=== PATIENT | male | born 1985 | race Caucasian/White ===

== ENCOUNTER → 2024-05-24 | Outpatient (CLI) | payer OTHER | LOC: LAB 09:19 → LAB SHORT 09:19 | DX: D23.71 Other benign neoplasm of skin of right lower limb, including hip (principal); L98.9 Disorder of the skin and subcutaneous tissue, unspecified | CPT/HCPCS: 88305 ==

== ENCOUNTER 2024-08-10 07:44 | Day surgery (SDC) | payer OTHER ==
[2024-08-10] VITALS (8 sets, daily range): BP systolic 122–147; BP diastolic 82–95
[~2024-08-10] VITALS: Ht 190.5 cm; Wt 142.6 kg
[~2024-08-10 07:44] MED LIST: FAMO20 PO; GLUCOPHAGE1000 M1 PO; LORA10ER PO; LOSARTAN POTAS100 M1 PO; METO50ER PO; ROSUVASTATIN CA10 MG PO; SEMAGLUTID0.25 MG/0. SC; SERT50 PO; SYNJARDY 12.5-1 EAC3 PO; THERA-D2000 UNIT PO
[2024-08-10] MEDS ORDERED: CeFAZolin Sodium 3,000 MG in NS 100 ML IV SCH (07:50)
[2024-08-10] MEDS ORDERED: Tranexamic Acid 100 ML IV SCH (07:53)
--- NOTE | 2024-08-10 08:20 | NUR ---
AMBULATORY INTO [facility]. PT REPORTS 4/10 LEFT SHOULDER PAIN. HISTORY AND ALLERGIES REVIEWED. LUNGS CLEAR.SATS>90% ON RA. PT DENIES SOB. DBP 110'S. PT HAS NOT TAKEN METOPROLOL OR COZAAR SINCE WEDNESDAY. NPO STATUS CONFIRMED. BELONGINGS IN BAG BELOW [place]. PT MOTHER GENARO IS RIDE HOME TODAY.
[2024-08-10] MEDS ORDERED: Midazolam HCl 1MG / ML 2ML Vial ONE (08:22)
[2024-08-10] MEDS ORDERED: EPINEPhrine HCl 1 MG / ML 30ML Vial ONE (08:43)
[2024-08-10] MEDS ORDERED: Lidocaine 1%-Epineph 1:200000 30 ML SDV ONE (08:43)
[2024-08-10] MEDS ORDERED: EpiNEPhrine 1 MG/1 ML 1ML Vial ONE (08:54)
[2024-08-10] MEDS ORDERED: FentaNYL Citrate 50 MCG/ML 2 ML Injection ONE ×2 (08:55→10:48)
--- NOTE | 2024-08-10 08:57 | NUR ---
DR. ERIC AT BEDSIDE. TIME OUT PERFORMED FOR LEFT INTRASCLENE NERVE BLOCK. PT PLACED ON 2 LITERS NASAL CANULA. CONTINUOUS SPO2 MONITORING.
[2024-08-10] MEDS ORDERED: Sugammadex Sodium 200 MG/2ML SDV (100 MG/ML) ONE (09:42)
[2024-08-10] MEDS ORDERED: Ondansetron HCl 2 MG / ML 2ML Vial IV PRN (10:25)
[2024-08-10] MEDS ORDERED: FentaNYL Citrate 50 MCG/ML 2 ML Injection IV PRN ×2 (10:25→10:30)
[2024-08-10] MEDS ORDERED: HYDROmorphone HCl/Pf 1MG SYR IV PRN ×2 (10:30)
[2024-08-10] MEDS ORDERED: Labetalol HCL 5 MG/ML 4ML Injection (Single Dose) IV PRN (10:30)
[2024-08-10] MEDS ORDERED: Rocuronium Bromide 10 MG/ML 5ML Injection IV ONE (11:26)
--- NOTE | 2024-08-10 12:13 | NUR ---
PT TO STEP DOWN, TOLERATED WATER X3 CUPS. MOTHER AT BEDSIDE. Discharge instructions reviewed with patient. Patient verbalizes understanding. Copy given to patient to take home. POLAR PACK DEMONSTRATED. Discharged via wheelchair to private car for ride home. DRG C/D/I TO LEFT SHOULDER. NO PAIN. PT HAD NERVE BLOCK. PT UNDERSTANDING OF PAIN MANAGMENT DISCUSSED WITH DR RODRIGUES.
--- NOTE | 2024-08-10 12:14 | NUR ---
Discharged via wheelchair to private car for ride home.
== END 2024-08-10 12:15 | disposition home or self-care (01) ==
LOC: ORSCMMR 07:44 → ORD 09:30 → ORSCMMR 09:30
PROVIDERS: Orthopaedic Surgery Sports Medicine
PROC: 0RNK4ZZ Release Left Shoulder Joint, Percutaneous Endoscopic Approach (ICD-10-PCS; principal; 2024-08-10 09:00)
PROC: 0LQ24ZZ Repair Left Shoulder Tendon, Percutaneous Endoscopic Approach (ICD-10-PCS; principal; 2024-08-10 09:00)
DX: M75.112 Incomplete rotator cuff tear or rupture of left shoulder, not specified as traumatic (principal); M75.42 Impingement syndrome of left shoulder; I10 Essential (primary) hypertension; K21.9 Gastro-esophageal reflux disease without esophagitis; G47.33 Obstructive sleep apnea (adult) (pediatric); J45.909 Unspecified asthma, uncomplicated; E11.9 Type 2 diabetes mellitus without complications; Z79.899 Other long term (current) drug therapy; Z79.84 Long term (current) use of oral hypoglycemic drugs; Z79.85 Long-term (current) use of injectable non-insulin antidiabetic drugs; E07.9 Disorder of thyroid, unspecified; E78.00 Pure hypercholesterolemia, unspecified; Z68.39 Body mass index [BMI] 39.0-39.9, adult; Z87.891 Personal history of nicotine dependence
CPT/HCPCS: 82947; C1713; J0165; J0690; J2250; J2704; J3010; J7120